=== PATIENT | male | born 1980 | race Caucasian/White ===

== ENCOUNTER 2023-05-05 02:55 | Emergency (ER) | payer OTHER ==
[~2023-05-05] VITALS: Ht 86.4 cm; Wt 83.9 kg
[2023-05-05 03:00] VITALS: BP 141/117; PULSE 88; RESP 16; TEMP 97.4; O2SAT 100
[2023-05-05 05:45] LABS: BASOPHILS % (AUTO) 0.2 % (0.0-2.0); EOSINOPHILS % (AUTO) 0.1 % (0.0-4.0); HEMATOCRIT 44.7 % (36-52); LYMPHOCYTES # (AUTO) 1.1 K/uL (2.0-11.5); LYMPHOCYTES % (AUTO) 9.7 % (20.5-51.1); MEAN CORPUSCULAR HEMOGLOBIN 30 pg (27-31); MEAN CORPUSCULAR HGB CONC 34 g/dL (33-37); MEAN CORPUSCULAR VOLUME 87.9 fL (80-94); MONOCYTES # (AUTO) 0.6 K/uL (0.8-1.0); NEUTROPHILS # (AUTO) 9.7 K/uL (1.8-7.7); PLATELET COUNT (AUTO) 287 K/uL (140-450); RED BLOOD CELL COUNT(AUTO) 5.08 MIL/uL (4.20-6.10); RED CELL DISTRIBUTION WIDTH 14.8 % (11.6-13.7); WHITE BLOOD COUNT (AUTO) 11.4 K/uL (4.8-10.8)
[2023-05-05] MEDS ORDERED: ACET-2619 PO (05:46)
[2023-05-05 06:10] LABS: ALBUMIN 4.6 g/dL (3.4-5.0); ANION GAP 10.9 (8-16); ASPARTATE AMINOTRANSFERASE 22 U/L (15-37); CHLORIDE 105 mmol/L (98-107); CREATININE 1.3 mg/dL (0.6-1.3); GFR ARICAN-AMERICAN 78 mL/min (>90); GLUCOSE 119 mg/dL (74-106); POTASSIUM 3.9 mmol/L (3.5-5.1); SODIUM SERUM 142 mmol/L (136-145); TOTAL BILIRUBIN 0.6 mg/dL (0.0-1.0); UREA NITROGEN, BLOOD 17 mg/dL (7-18)
[2023-05-05 06:14] LABS: ACETAMINOPHEN < 0.5 ug/ml (10-30); SALICYLATE < 2.8 mg/dL (2.8-20.0)
--- NOTE | 2023-05-05 06:29 | NUR ---
Per P, patient is no longer is custody and released. ADOLPH made aware.
== END 2023-05-05 10:00 | disposition home or self-care (01) ==
LOC: MED 02:55
DX: S09.90XA Unspecified injury of head, initial encounter (principal); R41.82 Altered mental status, unspecified; F10.129 Alcohol abuse with intoxication, unspecified; R04.0 Epistaxis; Y90.9 Presence of alcohol in blood, level not specified; X58.XXXA Exposure to other specified factors, initial encounter; Y93.89 Activity, other specified; Y92.89 Other specified places as the place of occurrence of the external cause; Y99.8 Other external cause status
CPT/HCPCS: 36415; 70450; 80053; 85025; 99284; G0480; G0482